=== PATIENT | female | born 1945 | race Caucasian/White ===

== ENCOUNTER → 2021-12-09 08:06 | Outpatient (CLI) | payer MEDICARE, SELFPAY ==
--- NOTE | 2021-12-09 | DI.MRI.S_ITS ---
PROCEDURE: MR LUMBAR SPINE WO CON INDICATIONS: SPINAL STENOSIS TECHNIQUE: Noncontrast sagittal T1 spin echo and T2 fast echo, sagittal STIR, and T2 fast spin echo through the lumbar spine. In cases with scoliosis, additional coronal T2 fast spin echo may be performed. COMPARISON: None. FINDINGS: Image quality: Excellent. Alignment and Curvature: There is normal bony alignment. Bone Marrow: Marrow is of normal overall signal. No acute vertebral body compression fractures. Spinal Cord: Conus medullaris terminates at the L1 level. Visualized cord demonstrates normal signal and size. Paraspinous Soft Tissues: No paravertebral masses. T12-L1: No significant disc bulge. The foramina and central canal are patent. L1-L2: No significant disc bulge. The foramina and central canal are patent. L2-L3: The disc is desiccated. No significant disc bulge. The foramina and central canal are patent. L3-L4: The disc is desiccated. No significant disc bulge. The foramina and central canal are patent. L4-L5: Diffuse disc bulge, facet hypertrophy and facet arthrosis with grade 1 anterolisthesis and ligamentum flavum hypertrophy cause severe right foraminal stenosis, moderate left foraminal stenosis, and severe central canal stenosis. L5-S1: Diffuse disc bulge, and facet hypertrophy cause moderate right and mild left foraminal stenosis. The central canal has mild stenosis. IMPRESSION: 1. Multilevel lumbar spondylosis, predominantly at L4-5 and L5-S1 with foraminal stenosis as detailed above causing severe central canal stenosis at L4-5. 2. No abnormal cord signal. 3. No acute traumatic abnormality. Dictated by: Rafa Snow M.D. on 12/09/2021 at 9:57 Approved by: Rafa Snow M.D. on 12/09/2021 at 10:03
== END ==
PROVIDERS: Family Provider Internal Medicine; PCP Internal Medicine; Referring Provider Orthopaedic Surgery Orthopaedic Surgery of the Spine; Visit Provider Orthopaedic Surgery Orthopaedic Surgery of the Spine
DX: M48.061 Spinal stenosis, lumbar region without neurogenic claudication (principal); M47.816 Spondylosis without myelopathy or radiculopathy, lumbar region; M47.817 Spondylosis without myelopathy or radiculopathy, lumbosacral region
CPT/HCPCS: 72148

== ENCOUNTER → 2022-01-18 09:13 | Outpatient (CLI) | payer MEDICARE, SELFPAY ==
--- NOTE | 2022-01-18 | DI.CT.S_ITS ---
PROCEDURE: CT LUMBAR SPINE WO CON INDICATIONS: SPINAL STENOSIS OF LUMBAR REGION TECHNIQUE: Noncontrast 3 mm thick sections acquired from the T12 level to the sacrum. Sagittal and coronal reformats were constructed. For radiation dose reduction, the following was used: automated exposure control. COMPARISON: MRI lumbar spine 12/09/2021 FINDINGS: Anterolisthesis measuring 5 millimeters is not significantly changed from 6 millimeters on the comparison MRI. Otherwise normal alignment. Vertebral body heights maintained. No suspicious lytic or blastic osseous lesion. No pars defect. Moderate to severe facet osteoarthropathy from L3-L4 through L5-S1 characterized by joint space narrowing, subchondral sclerosis, subchondral cystic change, and degenerative pneumoarthria along with marginal osteophytosis. The varying degrees of neural foraminal narrowing caused by the facet arthropathy in conjunction with disc protrusions is unchanged from the comparison MRI, again severe bilaterally at L4-L5. Spinal canal stenosis is also similar. Small calcified disc component is present within the right L5-S1 neural foramen (series 6, image 39). There is also focal punctate calcification of the annulus at the L2-L3 level on series 6, image 32 in the left subarticular zone. IMPRESSION: Multilevel multifactorial degenerative changes which are stable compared to 12/09/2021 exam. Small calcified annular disc components noted as detailed above. Dictated by: Amando Heller M.D. on 01/18/2022 at 16:41 Approved by: Amando Heller M.D. on 01/18/2022 at 16:45
== END ==
PROVIDERS: Family Provider Internal Medicine; PCP Internal Medicine; Referring Provider Orthopaedic Surgery Orthopaedic Surgery of the Spine; Visit Provider Orthopaedic Surgery Orthopaedic Surgery of the Spine
DX: M48.061 Spinal stenosis, lumbar region without neurogenic claudication (principal); M47.816 Spondylosis without myelopathy or radiculopathy, lumbar region; M47.817 Spondylosis without myelopathy or radiculopathy, lumbosacral region
CPT/HCPCS: 72131

== ENCOUNTER → 2022-01-25 11:06 | Outpatient (CLI) | payer MEDICARE, SELFPAY ==
[2022-01-25 11:28] LABS: Add Manual Diff / Slide Review NO; Basophils Absolute Auto 0 /uL (0-100); Basophils Percent Auto 0.7 % (0-2); Eosinophils Absolute Auto 700 /uL (0-450); Eosinophils Percent Auto 10.2 % (2-4); Lymphocytes Absolute Auto 1600 /uL (1100-4500); Lymphocytes Percent Auto 24.8 % (25-40); Mean Corpuscular HGB Conc 33.4 % (30-36); Mean Corpuscular Hemoglobin 31.4 PG (26-34); Mean Corpuscular Volume 93.8 fL (80-100); Monocytes Absolute Auto 300 /uL (0-900); Monocytes Percent Auto 4.6 % (3-14); Neutrophils Absolute Auto 3900 /uL (1500-7000); Neutrophils Percent Auto 59.7 % (50-75); Platelet Count 199 X10^3/uL (150-400); Red Blood Cell Count 3.52 X10^6/uL (4.0-5.2); Red Cell Distribution Width 13.8 % (11.6-14.8); White Blood Cell Count 6.6 X10^3/uL (4.5-11.0)
[2022-01-25 11:35] LABS: Hemoglobin A1C% w Est Avg Glu 5.8 % (4.0-6.0)
[2022-01-25 11:49] LABS: BUN Creatinine Ratio 20.3 (6-22); Blood Urea Nitrogen 31 mg/dL (7-17); Calcium 9.9 mg/dL (8.4-10.2); Carbon Dioxide 27 mmol/L (22-32); Chloride 106 mmol/L (98-107); Estimated Glomerular Filt Rate 35 mL/min (>60); Glucose 110 mg/dL (80-110); HEMOLYSIS < 15 (0-50); Potassium 3.8 mmol/L (3.4-5.1); Sodium 142 mmol/L (137-145)
== END ==
PROVIDERS: Family Provider Internal Medicine; PCP Internal Medicine; Referring Provider Orthopaedic Surgery Orthopaedic Surgery of the Spine; Visit Provider Orthopaedic Surgery Orthopaedic Surgery of the Spine
DX: Z01.818 Encounter for other preprocedural examination (principal); R73.9 Hyperglycemia, unspecified; Z01.812 Encounter for preprocedural laboratory examination
CPT/HCPCS: 36415; 80048; 83036; 85025; 93005

== ENCOUNTER → 2022-03-05 10:26 | Outpatient (CLI) | payer OTHER, SELFPAY ==
[2022-03-05 11:42] LABS: COVID19 -Nasal RAPID POSITIVE (Negative)
== END ==
PROVIDERS: Family Provider Internal Medicine; PCP Internal Medicine; Referring Provider Orthopaedic Surgery Orthopaedic Surgery of the Spine; Visit Provider Orthopaedic Surgery Orthopaedic Surgery of the Spine
DX: Z20.822 Contact with and (suspected) exposure to COVID-19 (principal)
CPT/HCPCS: 87635; C9803

== ENCOUNTER → 2022-04-13 08:49 | Outpatient (CLI) | payer OTHER, SELFPAY ==
[2022-04-13 10:08] LABS: Add Manual Diff / Slide Review NO; Basophils Absolute Auto 0 /uL (0-100); Basophils Percent Auto 0.6 % (0-2); Eosinophils Absolute Auto 800 /uL (0-450); Eosinophils Percent Auto 13.3 % (2-4); Hematocrit 34.6 % (36-46); Hemoglobin 11.4 g/dL (12.0-16.0); Lymphocytes Absolute Auto 1600 /uL (1100-4500); Mean Corpuscular Hemoglobin 31.1 PG (26-34); Mean Corpuscular Volume 94.3 fL (80-100); Monocytes Absolute Auto 300 /uL (0-900); Monocytes Percent Auto 4.9 % (3-14); Neutrophils Absolute Auto 3300 /uL (1500-7000); Neutrophils Percent Auto 54.2 % (50-75); Platelet Count 196 X10^3/uL (150-400); Red Blood Cell Count 3.67 X10^6/uL (4.0-5.2); Red Cell Distribution Width 14.2 % (11.6-14.8)
[2022-04-13 10:39] LABS: Blood Urea Nitrogen 46 mg/dL (7-17); Calcium 9.4 mg/dL (8.4-10.2); Carbon Dioxide 26 mmol/L (22-32); Chloride 106 mmol/L (98-107); Estimated Glomerular Filt Rate 27 mL/min (>60); Glucose 101 mg/dL (80-110); HEMOLYSIS < 15 (0-50); Potassium 4.3 mmol/L (3.4-5.1); Sodium 141 mmol/L (137-145)
== END ==
PROVIDERS: Family Provider Internal Medicine; PCP Internal Medicine; Referring Provider Orthopaedic Surgery Orthopaedic Surgery of the Spine; Visit Provider Orthopaedic Surgery Orthopaedic Surgery of the Spine
DX: Z01.812 Encounter for preprocedural laboratory examination (principal)
CPT/HCPCS: 36415; 80048; 85025

== ENCOUNTER → 2022-04-19 11:29 | Outpatient (CLI) | payer OTHER, SELFPAY ==
[2022-04-19 13:05] LABS: COVID19 -Nasal RAPID Negative (Negative)
== END ==
PROVIDERS: Family Provider Internal Medicine; PCP Internal Medicine; Referring Provider Orthopaedic Surgery Orthopaedic Surgery of the Spine; Visit Provider Orthopaedic Surgery Orthopaedic Surgery of the Spine
DX: Z20.822 Contact with and (suspected) exposure to COVID-19 (principal)
CPT/HCPCS: 87635; C9803

== ENCOUNTER 2022-07-12 11:14 | Inpatient (IN) | payer OTHER, SELFPAY ==
[2022-07-01 12:45] VITALS: BMI 31.2
[2022-07-12] VITALS (27 sets, daily range): BP systolic 94–156; BP diastolic 53–89; PULSE 68–96; RESP 12–22; TEMP 36.1–36.6; O2SAT 90–100; BMI 31.2
[2022-07-12 12:12] LABS: COVID19 -Nasal RAPID Negative (Negative)
[2022-07-12] MEDS: LACTATED RINGERS 1,000 ML 42 ML IV ×2 (12:13→15:46)
--- NOTE | 2022-07-12 13:29 | PM.PREOP ---
Pre-operative Note COVID-19 COVID-19 status: Negative Result date/Date tested (Pos, Neg/Pending): 07/11/22 Criteria for continued procedure: Expected advancement of disease process, Possibility delay results in more complex future surgery or treatment, Increased loss of function, Continuing or worsening of significant or severe pain, Deterioration of the patient's condition or overall health and Delay expected to result in less-positive ultimate med/surg outcome Interval Note History & Physical reviewed/Exam performed by Physician: Yes Changes to H&P: No
[2022-07-12] MEDS: CLINDAMYCIN 900 MG/50 ML PIGGYBACK 50 MG IV ×2 (14:05→20:23)
--- NOTE | 2022-07-12 14:34 | SUR.OPER ---
Prone on spine table, head in foam head support, padded chest and pelvic supports, gel pad at knees, lower legs supported by pillows; nipples, genitalia and toes free of pressure, arms secured on foam padded arm boards at <90 degrees abduction. Tape over blanket at thigh secured to table.
[2022-07-12] MEDS: BUPIVACAINE LIPOSOME 266 MG/20 ML VIAL INJ (15:27)
[2022-07-12] MEDS: BUPIVACAINE 0.25% (PF) 30 ML, EPINEPHrine 0.3 MG INJ (15:27)
--- NOTE | 2022-07-12 17:01 | P.OP_ITS ---
Operative Date/Time/Diagnoses Date of procedure: 07/12/22 Time of procedure: 13:00 Pre-op diagnosis: 1. L4-5, L5-S1 spinal stenosis with neurogenic claudication 2. L4-5, L5-S1 spondylolisthesis Post-op diagnosis: same Procedure & Clinicians Procedure: 1. L4-5, L5-S1 Postero-lateral and posterior interbody fusion 2. L4-5, L5-S1 interbody cage placement. 3. L4-5, L5-S1 decompressive laminectomy with bilateral facetecomies 4. L4-5, L5-S1 Posterior segmental instrumentation 5. [place] of bone marrow from iliac crest 6. Utilization of microsurgical technique and operating microscope 7. Utilization of robotic assisted navigation Same procedure as scheduled: Yes Indications: Patient has been having chronic back pain and worsening lumbar radiculopathy and symptoms of neurogenic claudication. Patient failed multiple conservative management with worsening pain weakness and numbness in her lower extremity. Patient has been having difficulty performing activity of daily living. After discussing risks benefits of treatment options, patient elected proceed with surgery. Surgeon: Monica Roberts Vamp Seamer: Sanjiv Currie Click Yes if Unassisted: No Anesthesia Type: General Operative Notes Closure Type: primary Specimen(s): none sent Prosthetic devices, grafts, tissues, transplants, or devices: GLbus CREO MIS screws, Rise cages Applied: catheter Estimated Blood Loss (mL): 100 Procedure in detail: Patient was seen in the preoperative area. Risks and benefits of the surgery was discussed with the patient. Informed consent was obtained from the patient and placed in the chart. Surgical site was marked. Patient was taken to the operative room. General anesthesia was administered. Prophylactic antibiotic was given to the patient less than 30 min before the incision was made. Patient was placed into a prone position on the Humberto table. Patient's back was then prepped and draped in the sterile fashion. Time-out was performed at this time. After patient was prepped and draped, patient's PSIS was palpated and marked b ilaterally. Small 1 cm incision was made over the PSIS for placement of the reference probes. Two trocar was placed into the PSIS 1 on each side. The reference probe was attached to the trocar of the reference apparatus. At this time the C-arm imaging was used to confirm AP and lateral of L4-L5, L5- S1 vertebrae and merged the C-arm imaging using the [employer] robotic navigation system with the CT of the lumbar spine. After successful merging was completed and confirmed, skin marker was used to saniya out the skin incision using the [employer] robotic arm. Bilateral incision was made at this time. Pre templated trajectory was used and guided using the [employer] robotic navigation system for bilateral L4, L5, S1 pedicle screw placement. This was done by using the robotic arm to guide the high-speed bur to make a cortical entry point. Next a drill was placed also using the robotic arm and guided using the navigation system drilling partially through bilateral L4, L5 and S1 pedicles. Next L4, L5, S1 pedicle screws it was pre templated and measured was placed onto the power industrial tractor driver and inserted into the pedicles bilaterally. After all 6 screws were placed C-arm imaging was taken of both AP and lateral to confirm the placement. Excellent placement of the screws were confirmed and a matched precisely with the pre planned screw placement using the navigation system. MARs retractor was inserted using [employer] guidence. Globus MARS retractors was placed inside the incision and docked onto the L4 and L5 lamina. Using microsurgical technique and operating microscope, a L4, L5 laminectomy and L4-5, L5-S1 facetectomy was performed using a Kerrison rongeur. Patient was found have severe lateral recess and neural foramen stenosis which was fully decompressed after the laminectomy facetectomy. More than 75% of the facets were removed during the process of decompression rendering L4-5, L5-S1 level grossly unstable and required a fusion procedure at the same time. The disc space at L4-5, L5-S1 was identified, and a total diskectomy was performed at L4- 5, L5-S1 level. The endplates were decorticated using a rasp and shaver. The total diskectomy and decortication was performed at L4-5, L5-S1 level in order to to accomplish a L4-5, L5-S1 fusion. The local bone from the laminectomy and facetectomy was saved for local bone grafting. After the total diskectomy and decortication was completed, Trifecta bone graft material was combined with local bone that was harvested earlier. At this time, a separate skin is incision was made over the iliac crest. A Jamshidi needle was inserted into the iliac crest through a separate skin incision. 5 cc of bone marrow aspiration was obtained through the separate skin incision using a Jamshidi needle from the iliac crest. The bone marrow aspiration was combined with local bone and the Trifecta bone grafting material. The bone grafting material was placed into the L4-5, L5-S1 interbody space along with a expandable cage. The cage was expanded to its maximum height using the torque limiting screwdriver. The disc preparation as well as the cage insertion were also performed under navigation guidance. After the cage was placed, AP and lateral C-arm imaging was taken to confirm placement of the cage and excellent position was confirmed. Globus MARS retractor was inserted and docked onto the L4-5, L5-S1 posterolateral gutter on the right side. Using the power drill, posterior- lateral decortication was performed at L4-5, L5-S1 level until bleeding cortical bone was identified. The remaining bone grafting material was placed into the L4-5, L5-S1 posterior lateral gutter he order to accomplish posterolateral fusion at the L4-5, L5-S1 level. At this time the tulips were attached to the L4, L5, S1 pedicle screw shanks. After measuring the length of the rods, they were inserted into the tulips of the pedicle screws and locked in place using locking caps and torque limiting screwdriver bilaterally. Total 6 caps and 2 titanium rods was used in order to complete the posterior instrumentation construct. After all the hardware was placed, and confirmed with AP and lateral C-arm imaging, the wound was then irrigated with sterile normal saline and packed with [employer] gauze for 3 min to accomplish hemostasis. After the gauze was removed the deep fascia was closed with #1 Vicryl suture. The subcutaneous layer was closed with 2-0 Vicryl. The skin was closed with skin katie. Patient tolerated the procedure well. There were no complications. Neuro monitoring system was used to monitor patient's neurologic status throughout entire procedure. There was no disturbance of the neural monitoring signals throughout the case. Complications: none Post-operative Condition: stable Disposition: PACU Plan for aftercare: Admit to inpatient hospital
--- NOTE | 2022-07-12 17:05 | DI.RAD.S_ITS ---
PROCEDURE: XR LUMBAR SPINE 2-3V INDICATIONS: L4-5, L5-S1 TLIF(ROBOT) TECHNIQUE: Intraoperative fluoroscopic images were obtained COMPARISON: None. FINDINGS: Two intraoperative fluoroscopic images of the lower lumbar spine. IMPRESSION: Intraprocedural fluoroscopy was provided for guidance and anatomical localization. Please see the procedure report for further details. Dictated by: Aaron Mccarty M.D. on 07/12/2022 at 17:30 Approved by: Aaron Mccarty M.D. on 07/12/2022 at 17:31
[2022-07-12] MEDS: ALBUTEROL 2.5 MG/3 ML NEB (ADULT) INH (17:17)
[2022-07-12] MEDS: LACTATED RINGERS 1,000 ML 125 ML IV (19:14)
[2022-07-12] MEDS: DOCUSATE 100 MG CAPSULE PO (20:33)
[2022-07-12] MEDS: SENNOSIDES 8.6 MG TABLET 17.2 MG PO (20:33)
[2022-07-13] VITALS (9 sets, daily range): BP systolic 96–125; BP diastolic 48–64; PULSE 65–85; RESP 16–18; TEMP 36.1–36.9; O2SAT 90–99
[2022-07-13] MEDS: CLINDAMYCIN 900 MG/50 ML PIGGYBACK 50 MG IV (02:48)
[2022-07-13] MEDS: OXYCODONE IR 10 MG TABLET PO ×3 (02:48→20:25)
[2022-07-13 05:16] LABS: Hematocrit 30.4 % (36-46); Hemoglobin 10.2 g/dL (12.0-16.0)
[2022-07-13] MEDS: LACTATED RINGERS 1,000 ML 125 ML IV (06:35)
--- NOTE | 2022-07-13 07:41 | PM.PNPO.1 ---
Subjective Subjective Date Patient Seen: 07/13/22 Time Patient Seen: 07:41 Interval history: Pain controlled. Denies fever chills. No nausea vomiting. Exam Vital Signs (past 8 hours): - 07/13/22 00:30 07/13/22 05:05 Temperature 97.3 F L 97.0 F L Pulse Rate 67 65 Respiratory Rate 18 18 Blood Pressure 106/54 L 103/48 L Pulse Oximetry 98 97 Oxygen Flow Rate 4 4 Fraction of Inspired Oxygen 36 SaO2/FiO2 Ratio 277 Oxygen Delivery Method Nasal Cannula Oxygen Flow Rate 4 Narrative Exam Narrative: 76-year-old female resting comfortably in bed no apparent distress. Neurovascular status is intact bilateral lower extremities. Const General: cooperative and comfortable Nutritional Appearance: average body habitus Orientation: alert Resp Effort & Inspection: normal respiratory effort and able to speak in complete sentences Objective Labs 07/13/22 04:31 Labs: Laboratory Results - last 24 hr 07/12/22 07/13/22 11:33 04:31 Hgb 10.2 L Hct 30.4 L SARS-CoV-2 (PCR) Negative [facility] Medical History Arthritis Asthma CKD (chronic kidney disease), stage III COVID-19 virus infection (03/05/22) GERD (gastroesophageal reflux disease) HLD (hyperlipidemia) HTN (hypertension) Spinal stenosis Surgical History History of ankle surgery History of bilateral tubal ligation History of bunionectomy of left great toe Hx of bilateral cataract extraction Hx of bladder repair surgery Hx of cholecystectomy Hx of fusion of cervical spine (2013) Hx of sinus surgery Hx of tonsillectomy Social History household members: spouse Smoking Status: Former smoker alcohol intake: current Assessment & Plan Post-op Postoperative Procedures: Procedures Operation Date: 07/12/22 13:00 Actual Procedure Side Surgeon p L4-5, L5-S1 TLIF w. posterior instrumentation -Robot Monica Roberts MD Postoperative day: 1 Postoperative status: doing well Postoperative plan: routine post-op care and ambulate Postoperative plan narrative: Mobilize with physical therapy, limit bending, twisting, lifting Multimodal pain management Discharge Jara catheter this morning Disposition home today or tomorrow Quality VTE Deep Vein Thrombosis/Pulmonary Embolism Present on Admission: No
[2022-07-13] MEDS: ATORVASTATIN 20 MG TABLET 40 MG PO (09:13)
[2022-07-13] MEDS: DOCUSATE 100 MG CAPSULE PO ×2 (09:13→20:25)
[2022-07-13] MEDS: AMLODIPINE 5 MG TABLET PO (09:13)
[2022-07-13] MEDS: LORATADINE 10 MG TABLET PO (09:13)
--- NOTE | 2022-07-13 11:04 | PC.NURSE ---
Addendum entered by Yohannes Alvarez R.N. 07/13/22 17:03: Pt tolerating Oxycodone without rash or issue after two doses. will continue to monitor. Addendum entered by Yohannes Alvarez R.N. 07/13/22 15:35: Pt alert and oriented, progressing though not feeling ready for discharge, spoke with PT and with Dr. Roberts and it was felt given Pt getting out late from surgery yesterday, she could use one more night. D/C canceled for today. PT to see in the morning. Original Note: Pt A&O, offers no overt c/o, Pt conversant, follows commands, asking appropriate questions. Jara discontinued without difficulty per orders. Pt working with PT presently.
--- NOTE | 2022-07-13 11:30 | PT.IIE ---
Current Diagnoses Spondylolisthesis, lumbar region (07/12/22) Spinal stenosis, lumbar region with neurogenic claudication (07/12/22) Surgery Performed Operation Date: 07/12/22 13:00 Actual Procedures p L4-5, L5-S1 TLIF w. posterior instrumentation -Robot - Monica Roberts MD Surgical History (Last Reviewed 07/13/22 @ 07:41 by Sanjiv Currie PA-C) History of ankle surgery History of bilateral tubal ligation History of bunionectomy of left great toe Hx of bilateral cataract extraction Hx of bladder repair surgery Hx of cholecystectomy Hx of fusion of cervical spine (2013) Hx of sinus surgery Hx of tonsillectomy Medical History (Last Reviewed 07/13/22 @ 07:41 by Sanjiv Currie PA-C) Arthritis Asthma CKD (chronic kidney disease), stage III COVID-19 virus infection (03/05/22) GERD (gastroesophageal reflux disease) HLD (hyperlipidemia) HTN (hypertension) Spinal stenosis Physical Therapy Inpatient Evaluation/Re-Eval M1 PT/OT-IP Prior Functional Status Start: 07/13/22 10:39 Freq: NEEDED Status: Active Protocol: Document 07/13/22 11:19 [facility] (Rec: 07/13/22 11:30 [facility] [id number]) Medical Review Prior Functional Status Medical History Reviewed Yes Diet/Fluid Consistency Regular Communication A & O x 4 Mobility and Gait independent Activities of Daily Living and IADL's modified ndep Social History Household Members spouse Living Arrangements Apartment/Condo Number of Floors (Floors) One Floor Number of Stairs To Enter/Railing? 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 Retired M2 PT-IP Current Condition Start: 07/13/22 10:39 Freq: NEEDED Status: Active Protocol: Document 07/13/22 11:19 [facility] (Rec: 07/13/22 11:30 [facility] [id number]) Physical Therapy Current Condition Current Condition Evaluation Date 07/13/22 Treatment Diagnosis s/p lumbar surgery with fusion Onset Date 07/12/22 M3 PT-IP Subjective Start: 07/13/22 10:39 Freq: NEEDED Status: Active Protocol: Document 07/13/22 11:19 [facility] (Rec: 07/13/22 11:30 [facility] [id number]) Subjective Physical Therapy Visit Type Type Initial Evaluation Visit Start Time 10:50 Visit Stop Time 11:20 Total Visit Minutes 30 Physical Therapy Visit Comments Patient Comments Patient willing to do PT, had pain medication 1 1/2 hr ago. Nrsg to remove catheter so may want to walk to bathroom Therapy Pain Assessment Pain When Pain Assessed At Rest Pain Present Pain Present Pain Reported Location back Intensity 6 Scale Used Numeric (0 - 10) Description Aching,Pinching,Tightness Pain Management Techniques Apply Cold,Distraction,Re- positioning,Timing of Activity with Medications M4 PT-IP Mobility and Gait Start: 07/13/22 10:39 Freq: NEEDED Status: Active Protocol: Document 07/13/22 11:19 [facility] (Rec: 07/13/22 11:30 [facility] [id number]) PT-Bed Mobility Assessment Rolling Type of Rolling Log Rolling,Roll to Left Level of Assist Minimal Assistance Supine to Sit Supine to Sit Minimal Assistance Sit to Supine Sit to Supine Minimal Assistance PT-Transfer Assessment Sit to and From Stand Sit to and from Stand Contact Guard Assistance Equipment Transfer Assistive Device Front Wheeled Walker Orthotic/Prosthetic Devices or Brace: No Transfers Transfer Technique walker for gait Transfer Ability Level of Assist Contact Guard Assistance,Use of Upper Extremities Comments Mobility Comments cues for safety Gait Assessment Gait Gait Assistance Required: Contact Guard Assist Distance (Feet) 20 Able to Maintain Weight Bearing Status Yes During Gait Assistive Devices Assistive Device Front Wheeled Walker Orthotic/Prosthetic Devices or Brace: No Gait Deviations General Gait Pattern Decreased Stride Length, Decreased Feet Clearance Factors Limiting Gait Function Factors Limiting Gait Function Pain Stair Climbing Assessment Comments Stair Climbing Comments not done in am PT-Balance Assessment Sitting Balance and Reactions Static Sitting Balance Ability Good Dynamic Sitting Balance Ability Good Standing Balance and Reactions Static Standing Balance Ability Good Dynamic Standing Balance Ability Good Device Used FWW M5 PT-IP Objective Assessments Start: 07/13/22 10:39 Freq: NEEDED Status: Active Protocol: Document 07/13/22 11:19 [facility] (Rec: 07/13/22 11:30 [facility] [id number]) Orientation Orientation/Cognition Level of Alertness Alert Orientation Name,Place,Situation Language Function Ability No Deficits Noted Safety Awareness Decreased Safety Awareness Memory Description No Deficits Noted Comments Patient instructed in post-op precautions and functional adherence reviewed several times Gross Range of Motion Upper Extremity ROM Assessment Within Functional Limits Lower Extremity ROM Assessment Within Functional Limits Strength Lower Extremity Strength Assessment Within Functional Limits Sensation Assessment Sensation Gross Sensation WNL Muscle Tone Muscle Tone WNL Yes M6 PT-IP Treatment Start: 07/13/22 10:39 Freq: NEEDED Status: Active Protocol: Document 07/13/22 11:19 [facility] (Rec: 07/13/22 11:30 [facility] [id number]) Physical Therapy Treatment Exercises Exercises Ankle Pumps,Gluteal Sets,Quad Sets Education Education Provided Precautions Other Treatments Other Treatment Performed core harika all submax M7 PT-IP Assessment and Plan Start: 07/13/22 10:39 Freq: NEEDED Status: Active Protocol: Document 07/13/22 11:19 [facility] (Rec: 07/13/22 11:30 [facility] [id number]) PT Summary Assessment and Plan Potential Rehabilitation Potential Good Status of Condition at Evaluation Evolving Summary Impairments Pain,Bed Mobility,Transfers, Gait,Activity Tolerance Assessment Summary Patient seen for PT evaluation post-op day 1 lumbar surgery with fusion. Instructed in post-op precautions, and reviewed throughout session with function. Instructed in log roll for exiting and entering bed, and instructed in safe use of walker with transfers and gait. Able to ambulate to the bathroom to void and back to bed. Mild inc pain with mobility and with submax isometric ex. Feel it will be difficult for patient to go directly home to her condo due to having 16 stairs to enter. Patient reports she is considering rehab vs staying in a hotel due to it having an elevator due to concerns over stairs. Goals Bed Mobility Goal Standby Assistance Transfer Goal Standby Assistance Gait Goal Standby Assistance Gait Distance 200 Other Goals able to verbalize precautions and demonstrate good ability to functionally adhere to precautions Days to Meet Goals 4 Frequency of Treatment Frequency Of Treatment Twice a Day Treatment Plan Physical Therapy Treatment Plan Bed Mobility Training,Transfer Training,Gait Training, Therapeutic Exercise,Discharge Planning,Hot or Cold Pack Precautions Lumbar Precautions Log Roll,No Twisting,Limit Bending,Lifting Restriction of 10 lbs,Gait Belt above Incisional Area Recommendations To Nursing Amount of Assist Needed 1 Person Assist Discharge Recommendations PT Discharge Recommendations Home with 25/10 Assist Available,Acute Rehab, Outpatient PT Transportation Needs at Discharge Private Vehicle
--- NOTE | 2022-07-13 12:06 | OT.IP.EVAL ---
Current Diagnoses Spondylolisthesis, lumbar region (07/12/22) Spinal stenosis, lumbar region with neurogenic claudication (07/12/22) Surgery Performed Operation Date: 07/12/22 13:00 Actual Procedures p L4-5, L5-S1 TLIF w. posterior instrumentation -Robot - Monica Roberts MD Past Medical History (Last Reviewed 07/13/22 @ 13:51 by Sanjiv Currie PA-C) Arthritis Asthma CKD (chronic kidney disease), stage III COVID-19 virus infection (03/05/22) GERD (gastroesophageal reflux disease) HLD (hyperlipidemia) HTN (hypertension) Spinal stenosis Surgical History (Last Reviewed 07/13/22 @ 13:51 by Sanjiv Currie PA-C) History of ankle surgery History of bilateral tubal ligation History of bunionectomy of left great toe Hx of bilateral cataract extraction Hx of bladder repair surgery Hx of cholecystectomy Hx of fusion of cervical spine (2013) Hx of sinus surgery Hx of tonsillectomy Occupational Therapy Inpatient Evaluation/Re-Eval M1 PT/OT-IP Prior Functional Status Start: 07/13/22 10:39 Freq: NEEDED Status: Active Protocol: Document 07/13/22 13:49 CGR (Rec: 07/13/22 14:10 CGR [id number]) Medical Review Prior Functional Status Medical History Reviewed Yes Diet/Fluid Consistency Regular Communication A & O x 4 Mobility and Gait independent Activities of Daily Living and IADL's Ind in all ADLs. Pt states that her and her share tasks. Social History Household Members spouse Living Arrangements Apartment/Condo Number of Floors (Floors) One Floor Number of Stairs To Enter/Railing? 16 stairs, 1 railing Home Environment Standard Height Toilet,Walk in Shower,Built-In Shower Seat Home Equipment Front Wheel Walker,Grab Bars Near Toilet,Grab Bars In Shower Employment Status Retired Additional Social History Comment Pt has an adjustable bed. M2 OT-IP Current Condition Start: 07/13/22 13:48 Freq: Status: Active Protocol: Document 07/13/22 13:49 CGR (Rec: 07/13/22 14:10 CGR [id number]) Occupational Therapy Current Condition Current Condition Evaluation Date 07/13/22 Treatment Diagnosis L4-S1 TLIF Diagnosis Onset Date 07/12/22 Post Operative Precautions Lumbar Precautions Log Roll,No Twisting,Limit Bending,Lifting Restriction of 10 lbs,Gait Belt above Incisional Area M3 OT- IP Subjective and Pain Start: 07/13/22 13:48 Freq: Status: Active Protocol: Document 07/13/22 13:49 CGR (Rec: 07/13/22 14:10 CGR [id number]) OT- Subjective Occupational Therapy Visit Type Type Initial Evaluation Visit Start Time 11:15 Visit Stop Time 12:06 Total Visit Minutes 51 Notes Pt finishing when pt when OT entered. OT Pain Assessment Pain When Pain Assessed At Rest Pain Present Pain Present Pain Reported Location back Intensity 6 Scale Used Numeric (0 - 10) Management Techniques Distraction,Modification of Treatment,Re-positioning, Timing of Activity with Medications M4 OT- IP ADL's Start: 07/13/22 13:48 Freq: Status: Active Protocol: Document 07/13/22 13:49 CGR (Rec: 07/13/22 14:10 CGR [id number]) OT [id number] Comments OT Self-Feeding Comments not meal time OT ADL-Grooming General Evaluation Grooming Ability Standby Assistance Areas Needing Assistance Face Washing Comments OT Grooming Comments standing at sink OT ADL-Oral Care Comments Oral Care Comments not performed, pt states just did prior to OT entering. OT ADL-Dressing General Eval Lower Body Dressing Ability Standby Assistance Areas Needing Assistance Socks Assistive Devices Dressing Assistive Devices Burr Mill Operator,Sock Aid Comments OT Dressing Comments Pt educated on LB dressing with use of sock aid and scrubbing machine operator. Pt demonstrated doffing an donning one sock on her L foot. OT ADL-Toileting General Evaluation Toileting Ability Standby Assistance Comments OT Toileting Comments simulated seated on toielt OT ADL-Bathing Comments OT Bathing Comments not performed M5 OT- IP IADL's Start: 07/13/22 13:48 Freq: Status: Active Protocol: Document 07/13/22 13:49 CGR (Rec: 07/13/22 14:10 CGR [id number]) OT-Instrumental Activities of Daily Living Deficits IADL Deficits Identified No Deficits Home Safety Awareness Awareness of Need for Assistance at Home Good Awareness Ability to Problem Solve Emergency Able to Problem Solve Situations Medication Management Medication Management No Deficits Identified Money Management Money Management No Deficits Identified Meal Preparation Meal Preparation No Deficits Identified Java Security Architect Java Security Architect No Deficits Identified Driving Driving Comments 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 M6 OT- IP Functional Cognition Start: 07/13/22 13:48 Freq: Status: Active Protocol: Document 07/13/22 13:49 CGR (Rec: 07/13/22 14:10 CGR [id number]) Cognitive Factors Limiting Selfcare Function Cognitive Ability Level of Alertness Alert Patient Orientation Name,Age,Birthday,Month,Date, Year,Day of Week,Place, Situation Attention Span Ability Capable of Focused Attention, Capable of Sustained Attention Ability to Follow Commands Able to Follow Multi-Step Commands OT- Vision and Hearing OT- Hearing Assessment OT- Hearing Assessment WFL OT- Vision Assessment Visual Acuity Glasses For Reading Visual Attentiveness WFL Occular Pursuits WFL Visual Convergence WFL Vision Assessment Comments Pt states she has a blurry R eye that started about 2 days prior to sx. Noted that it was bothering her at [facility]. M7 OT- IP Mobility and Balance Start: 07/13/22 13:48 Freq: Status: Active Protocol: Document 07/13/22 13:49 CGR (Rec: 07/13/22 14:10 CGR [id number]) OT- Bed Mobility Assessment Rolling Type of Rolling Log Rolling Level of Assistance Independent Supine to Sit Supine to Sit Assist Independent Sit to Supine Sit to Supine Assist Independent Scooting Scooting to Edge of Bed Independent OT-Transfer Assessment Sit to and From Stand Sit to and from Stand Standby Assistance Transfers Transfer Ability Standby Assistance Technique Transfer Destination Bed,Chair,Toilet Transfer Technique Stand Step Pivot Devices Transfer Assistive Devices Gait Belt,Front Wheeled Walker Comments Mobility Comments mobility around the room OT- Balance Assessment Sitting Balance and Reactions Static Sitting Balance Ability Good Dynamic Sitting Balance Ability Good M8 OT- IP Objective Assessments Start: 07/13/22 13:48 Freq: Status: Active Protocol: Document 07/13/22 13:49 CGR (Rec: 07/13/22 14:10 CGR [id number]) OT Gross Range of Motion Upper Extremity Range of Motion Assessment Within Functional Limits OT Strength Upper Extremity Strength Assessment Within Functional Limits Comments Strength Comments 4+ to 5/5 OT- Coordination Assessment Upper Extremity Finger to Nose Test Within Functional Limits Finger Tapping Test Within Functional Limits OT-Muscle Tone Assessment Muscle Tone WNL Yes OT Sensation Assessment Edema Edema Absent M9 OT- IP Assessment and Plan Start: 07/13/22 13:48 Freq: Status: Active Protocol: Document 07/13/22 13:49 CGR (Rec: 07/13/22 14:10 CGR [id number]) OT Summary Assessment and Plan Potential Rehabilitation Potential Excellent Analytic Complexity at Evaluation Low Summary OT Impairments Pain,Balance,Functional Mobility,Dressing,Toileting, Bathing,Toilet Transfers, Shower Transfers,Activity Tolerance Progress Towards Goals Slow Progress due to Pain Assessment Summary Pt presents as a low complexity evaluation s/p admit for L4-S1 TLIF. Pt is progressing well with therapy and is ready for discharge, however, pt has 16 stairs to get into her condo. Pt states she is willing to get a hotel without stairs for a few days if necessary. Pt is planning to do stairs with P.T. this PM . Pt will benefit from continued OT services for 1-2 more treatments if still in the hospital for review of LB dressing and showers. Goals Dressing Goal Independent,Burr Mill Operator,Sock Aid Toileting Goal Independent Bathing Goal Independent Toilet Transfer Goal Independent Shower Transfer Goal Independent Days to Meet Goals 2 Frequency of Treatment Frequency Of Treatment Once a Day Treatment Plan OT Treatment Plan ADL Training,Functional Mobility,Patient/Family Education,Discharge Planning Other Treatment Recommendations and Next shower, review LB dressing. Treatment Focus Discharge Recommendations OT Discharge Recommendations Home with Assistance Transportation Needs at Discharge Private Vehicle
--- NOTE | 2022-07-13 13:48 | PM.DS.1 ---
History of Present Illness History of Present Illness Date Patient Seen: 07/13/22 Time Patient Seen: 07:41 Chief complaint: Back pain Narrative: See progress note Discharge Providers Provider Date of admission: 07/12/22 11:14 Discharge Date: 07/13/22 Primary care physician: Jonathan Madrigal MD Consults: 07/12/22 19:03 Consult to Occupational Therapy Evaluate & Treat Comment: Physician Instructions: Evaluate and treat Consult to Physical Therapy Evaluate & Treat Comment: Physician Instructions: Evaluate and Treat Discharge provider: Sanjiv Currie PA-C Summary Hospital Course Discharge Diagnosis: 1. L4-5, L5-S1 spinal stenosis with neurogenic claudication 2. L4-5, L5-S1 spondylolisthesis Hospital Course: 1. L4-5, L5-S1 Postero-lateral and posterior interbody fusion 2. L4-5, L5-S1 interbody cage placement. 3. L4-5, L5-S1 decompressive laminectomy with bilateral facetecomies 4. L4-5, L5-S1 Posterior segmental instrumentation 5. Edgar of bone marrow from iliac crest 6. Utilization of microsurgical technique and operating microscope 7. Utilization of robotic assisted navigation Same procedure as scheduled: Yes Indications: Patient has been having chronic back pain and worsening lumbar radiculopathy and symptoms of neurogenic claudication. Patient failed multiple conservative management with worsening pain weakness and numbness in her lower extremity.? Patient has been having difficulty performing activity of daily living.? After discussing risks benefits of treatment options, patient elected proceed with surgery. Surgeon: Monica Roberts Systems Design Engineer: Sanjiv Currie Click Yes if Unassisted: No Anesthesia Type: General Operative Notes Closure Type: primary Specimen(s): none sent Prosthetic devices, grafts, tissues, transplants, or devices: GLbus CREO MIS screws, Rise cages Applied: catheter Estimated Blood Loss (mL): 100 Patient admitted to the hospital for the above-mentioned procedure. Patient consented to the same. Patient taken operating room on July 12, 2022 underwent lumbar fusion. Patient back in her room recovering well as in stable condition. Patient did well with physical therapy. She will continue multimodal pain management. Limit bending, twisting, lifting. Discharge home today in stable condition. Status at Discharge Cognitive/behavioral status at discharge: at baseline, oriented Functional status at discharge: uses cane/walker Overall status at discharge: patient is progressing back to baseline Exam Vital Signs (past 8 hours): - 07/13/22 09:30 07/13/22 07:00 07/13/22 13:20 Temperature 97.1 F L 97.6 F Pulse Rate 65 74 Respiratory Rate 16 16 Blood Pressure 113/51 L 125/61 Pulse Oximetry 98 98 96 Oxygen Delivery Method Nasal Cannula Oxygen Flow Rate 0 5 0 Fraction of Inspired Oxygen 36 SaO2/FiO2 Ratio 277 Oxygen Delivery Method Nasal Cannula Oxygen Flow Rate 0 Narrative Exam Narrative: See progress note Const General: cooperative and comfortable Objective Labs 07/13/22 04:31 Labs: Laboratory Results - last 24 hr 07/13/22 04:31 Hgb 10.2 L Hct 30.4 L PFSH Medical History Arthritis Asthma CKD (chronic kidney disease), stage III COVID-19 virus infection (03/05/22) GERD (gastroesophageal reflux disease) HLD (hyperlipidemia) HTN (hypertension) Spinal stenosis Surgical History History of ankle surgery History of bilateral tubal ligation History of bunionectomy of left great toe Hx of bilateral cataract extraction Hx of bladder repair surgery Hx of cholecystectomy Hx of fusion of cervical spine (2013) Hx of sinus surgery Hx of tonsillectomy Social History household members: spouse Smoking Status: Former smoker alcohol intake: current Discharge Assessment & Plan Assessment and Plan Assessment: Patient progressing as expected Plan of Treatment: Discharge home today in stable condition Discharge Plan Discharge Plan Patient Disposition: Home Discharge orders & Medications Prescriptions: New acetaminophen 325 mg Tablet 650 mg PO Q6H PRN (Reason: Fever/Mild Pain (1-3)) Qty: 60 0RF docusate sodium 100 mg Capsule 100 mg PO BID Qty: 20 0RF oxycodone 10 mg Tablet 5 mg PO Q3H PRN (Reason: Pain, Severe (7-10)) Qty: 60 0RF Continued atorvastatin 40 mg Tablet 40 mg PO DAILY cetirizine 10 mg Tablet 10 mg PO DAILY albuterol sulfate 2.5 mg /3 mL (0.083 %) Solution For Nebulization 2.5 mg INHALATION Q4-6H PRN (Reason: Asthma) amlodipine 5 mg Tablet 5 mg PO DAILY Discontinued naproxen sodium [Aleve] 220 mg Capsule 220 - 660 mg PO BEDTIME PRN (Reason: Pain) Follow up/Referrals: Jonathan Madrigal MD [Primary Care Provider] - Monica Roberts MD [Physician] - As previously scheduled (Two weeks as scheduled) Diet/Activity/Treatments Diet: Diet as Tolerated Activity: Limit bending, twisting, lifting Skin/Wound/Dressing Care Report to your healthcare provider any signs of infection, such as:: chills, fever, increased pain, unusual drainage and unusual redness Dressing: Keep dressing clean and dry Visit Report/Discharge Packet Instructions: DI for Prescription Opioid Use, DI for Transforaminal Lumbar Interbody Fusion Stand Alone Forms: Patient Portal/API, Stroke Signs & Symptoms, Surgery Discharge Discharge Data Primary Care Provider: Jonathan Madrigal Quality VTE Deep Vein Thrombosis/Pulmonary Embolism Present on Admission: No
--- NOTE | 2022-07-13 13:53 | CM.DANOTE ---
Initial DCP Assessment Note Pt is a 76 yo female, resident of [place], now POD#[address] Roberts PCP: Jonathan Madrigal Payer: [facility] Therapy has cleared pt for return home w/family to assist and pt has planned for home, the current barrier to a fluid discharge home is that patient has 16 stairs to enter her condo and she has not cleared these in practice today. Patient can stay at a hotel for a few days if needed DC order from Ortho is expected later today or tomorrow No barriers identified at this time, other than condo stairs, to patient's safe discharge home w/family to assist; close outpatient f/u recommended. 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 Yes Advance Directives on File No History Provided By Patient,Medical Record Prior Living Arrangements Apartment/Condo Comment 16 stairs to enter Household Members spouse Type of transporation used prior to Drives own vehicle admit Independent with ADL's Yes Is patient alert and oriented? Yes Barriers to Discharge Yes Comment PT/OT are concerned about patient's 16 stairs to enter her condo, however, patient considering staying in a hotel for a few days w/no stairs, until it's easier to enter her home Discharge Plan Home Transportation Arrangement Spouse Referrals Initiated None needed Comment PT/OT= Home w/assist and outpatient follow up
--- NOTE | 2022-07-13 14:27 | PT.IPTN ---
Current Diagnoses Spondylolisthesis, lumbar region (07/12/22) Spinal stenosis, lumbar region with neurogenic claudication (07/12/22) Surgery Performed Operation Date: 07/12/22 13:00 Actual Procedures p L4-5, L5-S1 TLIF w. posterior instrumentation -Robot - Monica Roberts MD Physical Therapy Treatment Note M2 PT-IP Current Condition Start: 07/13/22 10:39 Freq: NEEDED Status: Active Protocol: Document 07/13/22 11:19 SAK (Rec: 07/13/22 11:30 SAK [id number]) Physical Therapy Current Condition Current Condition Evaluation Date 07/13/22 Treatment Diagnosis s/p lumbar surgery with fusion Onset Date 07/12/22 M3 PT-IP Subjective Start: 07/13/22 10:39 Freq: NEEDED Status: Active Protocol: Document 07/13/22 15:12 TS (Rec: 07/13/22 15:56 TS [id number]) Subjective Physical Therapy Visit Type Type Treatment Note Visit Start Time 14:27 Visit Stop Time 15:05 Total Visit Minutes 38 Notes Spouse in room. Physical Therapy Visit Comments Patient Comments PT found resting in bed, reports she is worried about doing her stairs at home and may try to find a hotel room to stay in for a few nights. Therapy Pain Assessment Pain When Pain Assessed At Rest Pain Present Pain Present Pain Reported M4 PT-IP Mobility and Gait Start: 07/13/22 10:39 Freq: NEEDED Status: Active Protocol: Document 07/13/22 15:12 TS (Rec: 07/13/22 15:56 TS [id number]) PT-Bed Mobility Assessment Rolling Type of Rolling Log Rolling Level of Assist Standby Assistance Supine to Sit Supine to Sit Standby Assistance Sit to Supine Sit to Supine Standby Assistance Scooting Scooting to Edge of Bed Minimal Assistance Scooting Up and Down in Bed Standby Assistance PT-Transfer Assessment Sit to and From Stand Sit to and from Stand Standby Assistance Equipment Transfer Assistive Device Gait Belt,Front Wheeled Walker Orthotic/Prosthetic Devices or Brace: No Comments Mobility Comments Pt found resting in bed, agreeable to PT session. Log roll to right SBA, demonstrated good carryover from previous session. Supine to sit SBA with cues for BUE support for uprighting trunk, cues for LEs off bed. Pt scooted to EOB Ileana with handheld assist. Sit to stand x2 SBA with BUE support on FWW , good upright posture. Pt ambulated in hallway ~300' to stairs and back to room SBA with step thru gait and BUE support. She performed stairs CGA/Ileana x9 with left sided railing, pt fatigued and required rest break in w/c. Pt ambulated back to room SBA with no signs of buckling or LOB. Sit to supine SBA, provided cues for log roll back back into bed. She scooted to HOB with SBA and BUE handraill assist. Gait Assessment Gait Gait Assistance Required: Standby Assistance Distance (Feet) 300 Able to Maintain Weight Bearing Status Yes During Gait Assistive Devices Assistive Device Front Wheeled Walker Orthotic/Prosthetic Devices or Brace: No Gait Deviations General Gait Pattern Decreased Stride Length, Decreased Feet Clearance Factors Limiting Gait Function Factors Limiting Gait Function Pain Comments Gait Comments See mobility. Stair Climbing Assessment Evaluation Level of Assist On Stairs Contact Guard Assistance, Minimal Assistance Devices Stair Climbing Assistive Devices Left Railing Technique/Endurance Stair Climbing Direction Ascend and Descend Stair Climbing Technique Step to Step Number of Steps Climbed 9 Comments Stair Climbing Comments Pt performed stairs CGA ascending/Ileana descending x9, educated pt and spouse on guarding for stairs. PT-Balance Assessment Sitting Balance and Reactions Static Sitting Balance Ability Good Dynamic Sitting Balance Ability Good Standing Balance and Reactions Static Standing Balance Ability Good Dynamic Standing Balance Ability Good Device Used FWW M5 PT-IP Objective Assessments Start: 07/13/22 10:39 Freq: NEEDED Status: Active Protocol: Document 07/13/22 11:19 [facility] (Rec: 07/13/22 11:30 [facility] [id number]) Orientation Orientation/Cognition Level of Alertness Alert Orientation Name,Place,Situation Language Function Ability No Deficits Noted Safety Awareness Decreased Safety Awareness Memory Description No Deficits Noted Comments Patient instructed in post-op precautions and functional adherence reviewed several times Gross Range of Motion Upper Extremity ROM Assessment Within Functional Limits Lower Extremity ROM Assessment Within Functional Limits Strength Lower Extremity Strength Assessment Within Functional Limits Sensation Assessment Sensation Gross Sensation WNL Muscle Tone Muscle Tone WNL Yes M6 PT-IP Treatment Start: 07/13/22 10:39 Freq: NEEDED Status: Active Protocol: Document 07/13/22 11:19 [facility] (Rec: 04/11/23 11:30 SAK [id number]) Physical Therapy Treatment Exercises Exercises Ankle Pumps,Gluteal Sets,Quad Sets Education Education Provided Precautions Other Treatments Other Treatment Performed core hariak all submax M7 PT-IP Assessment and Plan Start: 07/13/22 10:39 Freq: NEEDED Status: Active Protocol: Document 07/13/22 15:12 TS (Rec: 07/13/22 15:56 TS [id number]) PT Summary Assessment and Plan Potential Rehabilitation Potential Good Status of Condition at Evaluation Evolving Summary Impairments Pain,Bed Mobility,Transfers, Gait,Activity Tolerance Assessment Summary Pt progressed all bed mobility to SBA this session and sit to stand to SBA. Pt recalled 3 /3 precautions and demonstrated good carryover of log roll sequencing. She progressed her ambulation to ~ 300' SBA with FWW, no signs of buckling or LOB. Pt performed stairs x9 CGA for ascending/ Ileana descending stairs for eccentric control, pt became fatigued and required rest break in chair. PT is recommending 24/7 assist available from spouse who is very supportive and willing. Pt believes she can return home tomorrow and will not be pursuing hot room for d/c. PT will work with her in the morning to progress stairs before d/c. Goals Bed Mobility Goal Standby Assistance Transfer Goal Standby Assistance Gait Goal Standby Assistance Gait Distance 200 Other Goals able to verbalize precautions and demonstrate good ability to functionally adhere to precautions Days to Meet Goals 4 Frequency of Treatment Frequency Of Treatment Twice a Day Treatment Plan Physical Therapy Treatment Plan Bed Mobility Training,Transfer Training,Gait Training, Therapeutic Exercise,Discharge Planning,Hot or Cold Pack Precautions Lumbar Precautions Log Roll,No Twisting,Limit Bending,Lifting Restriction of 10 lbs,Gait Belt above Incisional Area Recommendations To Nursing Amount of Assist Needed 1 Person Assist Discharge Recommendations PT Discharge Recommendations Home with 24/7 Assist Available,Outpatient PT Transportation Needs at Discharge Private Vehicle
[2022-07-13] MEDS: SENNOSIDES 8.6 MG TABLET 17.2 MG PO (20:25)
[2022-07-14 04:00] VITALS: BP 123/65; PULSE 84; RESP 17; TEMP 36.8; O2SAT 94
[2022-07-14] MEDS: OXYCODONE IR 10 MG TABLET PO ×2 (05:42→10:06)
[2022-07-14 07:33] VITALS: BP 115/54; PULSE 74; RESP 18; O2SAT 91
[2022-07-14] MEDS: ATORVASTATIN 20 MG TABLET 40 MG PO (08:31)
[2022-07-14 08:32] VITALS: O2SAT 91
[2022-07-14] MEDS: DOCUSATE 100 MG CAPSULE PO (08:32)
[2022-07-14] MEDS: LORATADINE 10 MG TABLET PO (08:32)
[2022-07-14] MEDS: ACETAMINOPHEN 325 MG TABLET 650 MG PO (08:33)
--- NOTE | 2022-07-14 10:12 | PT-IP ANOTE ---
pt is discharging this am with . She reports feeling comfortable with stairs and does not wish to do PT prior to DC
--- NOTE | 2022-07-14 10:12 | PC.NURSE ---
dressing changed today. no signs of infection. katie intact.
--- NOTE | 2022-07-14 13:58 | CM.DPNOTE ---
DC Note Discharge home today w/spouse, cleared by therapies. No needs from this CM team JW
== END 2022-07-14 10:20 | disposition home or self-care (01) | DRG 455 ==
PROVIDERS: Admitting Provider Orthopaedic Surgery Orthopaedic Surgery of the Spine; Family Provider Internal Medicine; PCP Internal Medicine; Referring Provider Orthopaedic Surgery Orthopaedic Surgery of the Spine; Visit Provider Orthopaedic Surgery Orthopaedic Surgery of the Spine
PROC: 0SG00AJ Fusion of Lumbar Vertebral Joint with Interbody Fusion Device, Posterior Approach, Anterior Column, Open Approach (ICD-10-PCS; principal; 2022-07-12 13:00)
DX: M43.16 Spondylolisthesis, lumbar region (principal); M48.062 Spinal stenosis, lumbar region with neurogenic claudication; M43.17 Spondylolisthesis, lumbosacral region; M48.07 Spinal stenosis, lumbosacral region; E78.5 Hyperlipidemia, unspecified; I10 Essential (primary) hypertension; J45.909 Unspecified asthma, uncomplicated; Z20.822 Contact with and (suspected) exposure to COVID-19; Z87.891 Personal history of nicotine dependence
CPT/HCPCS: 36415; 72100; 76000; 85014; 85018; 87635; 94760; 94762; 97116; 97162; 97165; 97530; 97535; C9803; C1713; C9290; J0171; J1100; J1170; J2250; J2405; J2704; J3010; J7613

== ENCOUNTER 2023-02-07 13:18 | Emergency (ER) | payer OTHER, SELFPAY ==
[2022-07-12 11:23] VITALS: BMI 31.2
[2023-02-07] VITALS (21 sets, daily range): BP systolic 146–179; BP diastolic 60–85; PULSE 58–75; RESP 11–24; TEMP 36.4; O2SAT 92–98; BMI 28.7
--- NOTE | 2023-02-07 14:23 | DI.RAD.S_ITS ---
PROCEDURE: XR CHEST 1V INDICATIONS: chest pain TECHNIQUE: One view of the chest was acquired. COMPARISON: None. FINDINGS: Surgical changes and devices: None. Lungs and pleura: Lungs are clear. No pleural effusions or pneumothorax. Mediastinum: Mediastinal contours appear normal. Heart size is normal. Bones and chest wall: No suspicious bony lesions. Overlying soft tissues appear unremarkable. IMPRESSION: No acute cardiopulmonary findings Approved by: Arnold Ernandez M.D. on 02/07/2023 at 15:02
--- NOTE | 2023-02-07 14:28 | PC.NURSE ---
ED chest pain order set accidentally ordered instead of ED Nurse Chest Pain order set. Provider made aware, provider okayed orderset.
[2023-02-07 14:36] LABS: Alanine Aminotransferase 13 IU/L (<35); Albumin 3.9 g/dL (3.5-5.0); Albumin Globulin Ratio 1.1 (1.0-2.8); Alkaline Phosphatase 150 U/L (38-126); Aspartate Aminotransferase 23 IU/L (14-36); BUN Creatinine Ratio 19.2 (6-22); Bilirubin Total 0.6 mg/dL (0.2-1.3); Blood Urea Nitrogen 20 mg/dL (7-17); Calcium 10.1 mg/dL (8.4-10.2); Carbon Dioxide 28 mmol/L (22-32); Chloride 103 mmol/L (98-107); Creatine Kinase 61 U/L (30-135); Estimated Glomerular Filt Rate 55 mL/min (>60); Globulin 3.4 g/dL (1.7-4.1); Glucose 91 mg/dL (80-110); HEMOLYSIS < 15 (0-50); Lipase 61 U/L (23-300); Potassium 3.7 mmol/L (3.4-5.1); Sodium 137 mmol/L (137-145); Total Protein 7.3 g/dL (6.3-8.2)
[2023-02-07 14:39] LABS: Add Manual Diff / Slide Review NO; Basophils Absolute Auto 100 /uL (0-100); Eosinophils Absolute Auto 200 /uL (0-450); Eosinophils Percent Auto 2.5 % (2-4); Hematocrit 33.7 % (36-46); Hemoglobin 11.4 g/dL (12.0-16.0); Lymphocytes Absolute Auto 2200 /uL (1100-4500); Lymphocytes Percent Auto 29.5 % (25-40); Mean Corpuscular HGB Conc 33.9 % (30-36); Mean Corpuscular Hemoglobin 30.3 PG (26-34); Mean Corpuscular Volume 89.3 fL (80-100); Monocytes Absolute Auto 500 /uL (0-900); Monocytes Percent Auto 6.2 % (3-14); Neutrophils Absolute Auto 4600 /uL (1500-7000); Neutrophils Percent Auto 60.8 % (50-75); Platelet Count 352 X10^3/uL (150-400); Red Blood Cell Count 3.77 X10^6/uL (4.0-5.2); Red Cell Distribution Width 13.9 % (11.6-14.8); White Blood Cell Count 7.6 X10^3/uL (4.5-11.0)
[2023-02-07 14:47] LABS: Troponin I < 0.012 ng/mL (0.01-0.034)
--- NOTE | 2023-02-07 15:01 | PC.NURSE ---
Pt states she has had chest pain the past few days, but today chest pain increased along with shortness of breath. Pt says she has asthma and is used to feeling SOB, but today she felt worse and went to the walk in clinic. [facility] called 911 and patient was transported to the ER. Patient denies chest pain currently, after receiving aspirin and nitro from EMS
[2023-02-07] MEDS: FAMOTIDINE 20 MG/2 ML VIAL 40 MG IV (16:50)
[2023-02-07 16:52] LABS: Creatine Kinase 53 U/L (30-135)
[2023-02-07] MEDS: MAG HYDROX/ALUMINUM/SIMETH SUS 20 ML, LIDOCAINE VISCOUS 2% 15 ML PO (16:52)
[2023-02-07 17:04] LABS: Troponin I < 0.012 ng/mL (0.01-0.034)
--- NOTE | 2023-02-15 11:13 | ED.CHESTPAIN ---
HPI - Chest Pain <Sindy Martinez PA-C - Last Filed: 02/15/23 11:23> General Chief Complaint: Chest Pain Stated Complaint: Chest pain Time Seen by Provider: 02/07/23 15:53 Source: patient and EMS Mode of arrival: EMS Limitations: no limitations History of Present Illness HPI narrative: 77-year-old female with past medical history asthma, arthritis, GERD, hyperlipidemia, CKD 3 presents to the ED with intermittent chest pain for the last 3 days. Patient states that she had a 9/10 chest pain earlier this morning that radiated down to her left arm. Patient went to the walk-in clinic, was given 325 of aspirin and 1 nitro which resolved her pain completely. Patient was brought from the walk-in clinic to the ED by EMS. In the ED patient denies chest pain or any other symptoms. She denies fever, chills, chest pain, shortness of breath, nausea, vomiting, abdominal pain, lightheadedness, dizziness, syncope. Related Data Home Medications Medication Instructions Recorded Confirmed atorvastatin 40 mg tablet 40 mg PO DAILY 03/04/22 07/12/22 albuterol sulfate 2.5 mg/3 mL 2.5 mg inhalation Q4-6H PRN Asthma 04/16/22 07/12/22 (0.083 %) solution for nebulization cetirizine 10 mg tablet 10 mg PO DAILY 04/16/22 07/12/22 amlodipine 5 mg tablet 5 mg PO DAILY 07/01/22 07/12/22 Previous Rx's Medication Instructions Recorded acetaminophen 325 mg tablet 650 mg (2 x 325 mg) PO Q6H PRN 07/13/22 Fever/Mild Pain (1-3) #60 tabs docusate sodium 100 mg capsule 100 mg PO BID #20 caps 07/13/22 oxycodone 10 mg tablet 5 mg (1/2 x 10 mg) PO Q3H PRN 07/13/22 Pain, Severe (7-10) #60 tabs Allergies Allergy/AdvReac Type Severity Reaction Status Date / Time azithromycin Allergy Severe Hives Verified 02/07/23 13:37 oxycodone Allergy Severe Hives Verified 02/07/23 13:37 Penicillins Allergy Severe Anaphylaxis Verified 02/07/23 13:37 nickel Allergy Intermediate Itch, Verified 02/07/23 13:37 rash, blister Sulfa (Sulfonamide Allergy Intermediate ITCHING Verified 02/07/23 13:37 Antibiotics) Review of Systems <Sindy Martinez PA-C - Last Filed: 02/15/23 11:23> Constitutional Constitutional: Denies chills, Denies fatigue, Denies fever(s), Denies frequent falls, Denies lethargy and Denies weakness Eyes Eyes: Denies change in vision, Denies eye discharge, Denies irritation and Denies loss of vision ENT Ears, Nose, Mouth, and Throat: Denies change in voice, Denies dizziness, Denies neck pain, Denies sore throat and Denies throat swelling Cardiovascular Cardiovascular: Reports chest pain, Denies irregular heart rhythm, Denies lightheadedness, Denies palpitations, Denies dyspnea, Denies dyspnea on exertion and Denies orthopnea Respiratory Respiratory: Denies cough, Denies dyspnea, Denies dyspnea on exertion and Denies wheezing Gastrointestinal Gastrointestinal: Denies abdominal pain, Denies change in bowel habits, Denies diarrhea, Denies nausea and Denies vomiting Musculoskeletal Musculoskeletal: Denies neck pain and Denies numbness Integumentary/Breasts Skin/Breast: Denies pruritus, Denies erythema, Denies rash and Denies wounds Neurologic Neurologic: Denies behavioral changes, Denies confusion, Denies dizziness, Denies frequent falls, Denies loss of vision, Denies numbness and Denies weakness Psychiatric Psychiatric: Denies anxiety, Denies behavioral changes, Denies confusion, Denies depression, Denies homicidal ideation and Denies suicidal ideation Endocrine Endocrine: Denies fatigue, Denies flushing and Denies palpitations Hematologic/Lymphatic Hematologic/Lymphatic: Denies easy bruising Allergic/Immunologic Allergic/Immunologic: Denies urticaria, Denies throat swelling and Denies wheezing Patient History <Sindy Martinez PA-C - Last Filed: 02/15/23 11:23> Medical History CKD (chronic kidney disease), stage III HLD (hyperlipidemia) GERD (gastroesophageal reflux disease) COVID-19 virus infection (03/05/22) Asthma Arthritis HTN (hypertension) Spinal stenosis Surgical History History of bunionectomy of left great toe History of ankle surgery Hx of tonsillectomy History of bilateral tubal ligation Hx of bladder repair surgery Hx of bilateral cataract extraction Hx of fusion of cervical spine (2014) Hx of sinus surgery Hx of cholecystectomy Social History household members: spouse Smoking Status: Former smoker alcohol intake: current Smoking Status: Former smoker alcohol intake frequency: 0-2 drinks per day Alcohol type: wine Substance Use Type: does not use Exam <Sindy Martinez PA-C - Last Filed: 02/15/23 11:23> Narrative Exam Narrative: Const General:?cooperative, healthy appearing and comfortable [facility] Head:?normal to inspection Ears:?hearing grossly normal bilaterally Nose:?external nose normal Face and sinus:?normal facial exam and sinuses nontender Mouth:?oral mucosae normal Throat:?posterior oropharynx normal Eyes General:?appearance normal, both eyes and all related structures Neck Neck:?normal visual inspection and no lymphadenopathy noted Resp Effort & Inspection:?normal respiratory effort Auscultation:?clear to auscultation bilaterally Cardio Rate:?regular rate Rhythm:?regular rhythm Neuro General:?patient alert, patient awake and patient oriented x3 Initial Vital Signs Initial Vital Signs: Vital Signs Temperature 97.5 F L 02/07/23 13:20 Pulse Rate 63 02/07/23 13:20 Respiratory Rate 18 02/07/23 13:20 Blood Pressure 160/74 H 02/07/23 13:20 Pulse Oximetry 98 02/07/23 13:20 Oxygen Delivery Method Room Air 02/07/23 13:20 <Christa Saldivar DO - Last Filed: 02/15/23 22:50> Initial Vital Signs Initial Vital Signs: Vital Signs Temperature 97.5 F L 02/07/23 13:20 Pulse Rate 63 02/07/23 13:20 Respiratory Rate 18 02/07/23 13:20 Blood Pressure 160/74 H 02/07/23 13:20 Pulse Oximetry 98 02/07/23 13:20 Oxygen Delivery Method Room Air 02/07/23 13:20 Course <Sindy Martinez PA-C - Last Filed: 02/15/23 11:23> Orders Ordered: Discontinued Medications Aspirin (Aspirin 81 Mg Chew Tab) 324 mg PO NOW ONE Stop: 02/07/23 14:23 Last Admin: 02/07/23 14:26 Dose: Not Given Documented By: SPF Al Hydrox/Mg Hydrox/Simethicone 20 ml/ Lidocaine HCl 15 ml 0 ml PO NOW ONE Stop: 02/07/23 16:20 Last Admin: 02/07/23 16:52 Dose: 35 ml Documented By: SPF Famotidine (Famotidine 20 Mg/2 Ml Vial) 40 mg IV NOW [facility] Famotidine (Famotidine 20 Mg/2 Ml Vial) 40 mg IV NOW [facility] Last Admin: 02/07/23 16:50 Dose: 40 mg Documented By: SPF Sodium Chloride (Normal Saline 0.9%) 1,000 mls @ 150 mls/hr IV CONT [facility] Last Admin: 02/07/23 14:27 Dose: Not Given Documented By: SPF <Christa Saldivar DO - Last Filed: 02/15/23 22:50> Orders Ordered: Discontinued Medications Aspirin (Aspirin 81 Mg Chew Tab) 324 mg PO NOW ONE Stop: 02/07/23 14:23 Last Admin: 02/07/23 14:26 Dose: Not Given Documented By: SPF Al Hydrox/Mg Hydrox/Simethicone 20 ml/ Lidocaine HCl 15 ml 0 ml PO NOW ONE Stop: 02/07/23 16:20 Last Admin: 02/07/23 16:52 Dose: 35 ml Documented By: SPF Famotidine (Famotidine 20 Mg/2 Ml Vial) 40 mg IV NOW [facility] Famotidine (Famotidine 20 Mg/2 Ml Vial) 40 mg IV NOW [facility] Last Admin: 02/07/23 16:50 Dose: 40 mg Documented By: SPF Sodium Chloride (Normal Saline 0.9%) 1,000 mls @ 150 mls/hr IV CONT [facility] Last Admin: 02/07/23 14:27 Dose: Not Given Documented By: SPF MDM - Chest Pain <Sindy Martinez PA-C - Last Filed: 02/15/23 11:23> Lab Data 02/07/23 13:25 02/07/23 13:25 Labs: Lab Results 02/07/23 02/07/23 Range/Units 13:25 16:32 WBC 7.6 (4.5-11.0) X10^3/uL RBC 3.77 L (4.0-5.2) X10^6/uL Hgb 11.4 L (12.0-16.0) g/dL Hct 33.7 L (36-46) % MCV 89.3 (80-100) fL MCH 30.3 (26-34) PG MCHC 33.9 (30-36) % RDW 13.9 (11.6-14.8) % Plt Count 352 (150-400) X10^3/uL Neut % (Auto) 60.8 (50-75) % Lymph % (Auto) 29.5 (25-40) % [place] % (Auto) 6.2 (3-14) % Eos % (Auto) 2.5 (2-4) % Baso % (Auto) 1.0 (0-2) % Neut # (Auto) 4600 (9327-2695) /uL Lymph # (Auto) 2200 (2779-3748) /uL Independence # (Auto) 500 (0-900) /uL Eos # (Auto) 200 (0-450) /uL Baso # (Auto) 100 (0-100) /uL Sodium 137 (137-145) mmol/L Potassium 3.7 (3.4-5.1) mmol/L Chloride 103 (98-107) mmol/L Carbon Dioxide 28 (22-32) mmol/L BUN 20 H (7-17) mg/dL Creatinine 1.04 (0.52-1.04) mg/dL Estimated GFR 55 L (>60) mL/min BUN/Creatinine Ratio 19.2 (6-22) Glucose 91 (80-110) mg/dL Calcium 10.1 (8.4-10.2) mg/dL Total Bilirubin 0.6 (0.2-1.3) mg/dL AST 23 (14-36) IU/L ALT 13 (<35) IU/L Alkaline Phosphatase 150 H (38-126) U/L Total Creatine Kinase 61 53 (30-135) U/L Troponin I < 0.012 < 0.012 (0.01-0.034) ng/mL Total Protein 7.3 (6.3-8.2) g/dL Albumin 3.9 (3.5-5.0) g/dL Globulin 3.4 (1.7-4.1) g/dL Albumin/Globulin Ratio 1.1 (1.0-2.8) Lipase 61 (23-300) U/L MDM Narrative Medical decision making narrative: 77-year-old female with past medical history asthma, arthritis, GERD, hyperlipidemia, CKD 3 presents to the ED with intermittent chest pain for the last 3 days. Concern for ACS versus arrhythmias versus GERD versus pneumonia versus musculoskeletal sprain/strain versus other. Will obtain labs, troponin, lipase, EKG, chest x-ray. Chest x-ray with no acute cardiopulmonary findings. Labs, troponin, lipase, EKG without acute findings. Troponin was repeated and was normal as well. Patient continued to be symptom-free in the ED. discussed findings with patient. Recommend follow-up with cardiology and PCP as soon as possible. ED return precautions discussed with patient. Patient verbalized understanding. Medical records reviewed: Yes <Christa Saldivar DO - Last Filed: 02/15/23 22:50> Lab Data Labs: Lab Results 02/07/23 02/07/23 Range/Units 13:25 16:32 WBC 7.6 (4.5-11.0) X10^3/uL RBC 3.77 L (4.0-5.2) X10^6/uL Hgb 11.4 L (12.0-16.0) g/dL Hct 33.7 L (36-46) % MCV 89.3 (80-100) fL MCH 30.3 (26-34) PG MCHC 33.9 (30-36) % RDW 13.9 (11.6-14.8) % Plt Count 352 (150-400) X10^3/uL Neut % (Auto) 60.8 (50-75) % Lymph % (Auto) 29.5 (25-40) % Independence % (Auto) 6.2 (3-14) % Eos % (Auto) 2.5 (2-4) % Baso % (Auto) 1.0 (0-2) % Neut # (Auto) 4600 (1606-5379) /uL Lymph # (Auto) 2200 (8327-9058) /uL Independence # (Auto) 500 (0-900) /uL Eos # (Auto) 200 (0-450) /uL Baso # (Auto) 100 (0-100) /uL Sodium 137 (137-145) mmol/L Potassium 3.7 (3.4-5.1) mmol/L Chloride 103 (98-107) mmol/L Carbon Dioxide 28 (22-32) mmol/L BUN 20 H (7-17) mg/dL Creatinine 1.04 (0.52-1.04) mg/dL Estimated GFR 55 L (>60) mL/min BUN/Creatinine Ratio 19.2 (6-22) Glucose 91 (80-110) mg/dL Calcium 10.1 (8.4-10.2) mg/dL Total Bilirubin 0.6 (0.2-1.3) mg/dL AST 23 (14-36) IU/L ALT 13 (<35) IU/L Alkaline Phosphatase 150 H (38-126) U/L Total Creatine Kinase 61 53 (30-135) U/L Troponin I < 0.012 < 0.012 (0.01-0.034) ng/mL Total Protein 7.3 (6.3-8.2) g/dL Albumin 3.9 (3.5-5.0) g/dL Globulin 3.4 (1.7-4.1) g/dL Albumin/Globulin Ratio 1.1 (1.0-2.8) Lipase 61 (23-300) U/L ECG Data Attestation: I personally reviewed and interpreted this ECG as follows: Interpretation: Mank: Sinus rhythm rate of 60 6p are 156 QRS of 92 QTC of 427. No acute ST changes likely motion artifact in lead 1 [address] 3[address] No acute [address] changes compared to 01/25/2022. EKG 2. Sinus bradycardia rate of 50 6p are 152 QRS of [address] QTC 442. No acute ST elevation depression noted. Nonspecific change compared in leads 1 2 and 3. Discharge Plan Departure Patient Disposition: Home Clinical Impression: Chest pain Instructions: DI for Chest Pain Activity Restrictions/Additional Instructions: You were evaluated in the ED today for chest pain. Your chest x-ray, EKG, labs were normal. It is possible that your symptoms could be caused by acid reflux. You may continue to take Pepcid AC twice daily for the next few days. Please follow-up with your PCP and a inward toll operator as soon as possible. Return to the ED if you have worsening symptoms, shortness of breath. Prescriptions: No Action atorvastatin 40 mg Tablet 40 mg PO DAILY cetirizine 10 mg Tablet 10 mg PO DAILY albuterol sulfate 2.5 mg /3 mL (0.083 %) Solution For Nebulization 2.5 mg INHALATION Q4-6H PRN (Reason: Asthma) amlodipine 5 mg Tablet 5 mg PO DAILY acetaminophen 325 mg Tablet 650 mg PO Q6H PRN (Reason: Fever/Mild Pain (1-3)) Qty: 60 0RF docusate sodium 100 mg Capsule 100 mg PO BID Qty: 20 0RF oxycodone 10 mg Tablet 5 mg PO Q3H PRN (Reason: Pain, Severe (7-10)) Qty: 60 0RF Referrals: Jonathan Madrigal MD [Primary Care Provider] - Stand Alone Forms: Patient Portal/API ED Sign-out <Christa Saldivar DO - Last Filed: 02/15/23 22:50> Cosign ED Attending [place] Attestation: I was immediately available in the department for consultation.
== END 2023-02-07 17:49 | disposition home or self-care (01) ==
PROVIDERS: Emergency Medicine; Emergency Provider Student in an Organized Health Care Education/Training Program; Family Provider Internal Medicine; PCP Internal Medicine
DX: R07.9 Chest pain, unspecified (principal); R00.1 Bradycardia, unspecified
CPT/HCPCS: 71045; 80053; 82550; 83690; 84484; 85025; 93005; 96374; 99284

== ENCOUNTER → 2024-03-12 11:35 | Outpatient (CLI) | payer MEDICARE, SELFPAY ==
[2022-07-12 11:23] VITALS: BMI 31.2
--- NOTE | 2024-03-12 | DI.RAD.S_ITS ---
PROCEDURE: XR SHOULDER LT MIN 2V INDICATIONS: Primary osteoarthritis, left shoulder TECHNIQUE: 3 views of the shoulder were acquired. COMPARISON: None. FINDINGS: Bones: No fractures or dislocations. [id number] acromioclavicular joint osteoarthritis and moderate glenohumeral joint osteoarthritis is seen. No suspicious bony lesions. Visualized ribs appear intact. Postfusion changes in visualized lower cervical spine are seen. Soft tissues: No suspicious soft tissue calcifications. IMPRESSION: 1. Cgps-[id number]-dorvcllp acromioclavicular joint and glenohumeral joint osteoarthritis. No shoulder fracture or dislocation. No gross soft tissue abnormalities. Dictated by: Samuel Renteria M.D. on 03/12/2024 at 13:44 Approved by: Samuel Renteria M.D. on 03/12/2024 at 13:45
== END ==
PROVIDERS: Family Provider Internal Medicine; PCP Student in an Organized Health Care Education/Training Program; Referring Provider Student in an Organized Health Care Education/Training Program; Visit Provider Student in an Organized Health Care Education/Training Program
DX: M19.012 Primary osteoarthritis, left shoulder (principal)
CPT/HCPCS: 73030

== ENCOUNTER 2024-09-24 07:07 | Day surgery (SDC) | payer MEDICARE, SELFPAY ==
[2022-07-12 11:23] VITALS: BMI 31.2
--- NOTE | 2024-09-24 | PATH_ITS ---
[facility] Accession Number: [id number] No. of containers..02 Tissue . 01 Material submitted: . PART A: colon - COLON, TRANSVERSE POLYP PART B: colon - COLON, RANDOM . 01 Diagnosis: A. TRANSVERSE COLON POLYP, BIOPSY: Tubular adenoma. . B. COLON, RANDOM, BIOPSIES: Colonic mucosa with no diagnostic alteration. No colitis, including microscopic colitis, is identified. MRV 10/01/2024 1301 Local . 01 Electronically signed: . Allan Ortega MD, Dermatopathologist NPI- [id number] . 01 Gross description: . Part A: COLON, TRANSVERSE POLYP : Received in formalin is 1 fragment(s) of lr, soft tissue measuring 0.6 x 0.4 x 0.4 cm submitted entirely in 1 cassette(s) Part B: COLON, RANDOM: Received in formalin are multiple fragment(s) of lr, soft tissue measuring 0.1 x 0.1 x 0.1 cm to 0.3 x 0.2 x 0.2 cm submitted entirely in 1 cassette(s) /ANTONIO 09/26/2024 1835 Local . 01 Pathologist provided ICD-10: D12.3, K90.3 . 01 CPT . 447010, 301107 Specimen Comment: A courtesy copy of this report has been sent to [phone] Performed at: [address] [id number] MD Yovani Naranjo MD Phone: [phone]
[2024-09-24 07:43] VITALS: BP 133/71; PULSE 79; RESP 16; TEMP 36.2; O2SAT 97
[2024-09-24] MEDS: LACTATED RINGERS 1,000 ML 42 ML IV (07:57)
--- NOTE | 2024-09-24 08:35 | PM.PREOP ---
Pre-operative Note COVID-19 Result date/Date tested (Pos, Neg/Pending): 09/24/24 Interval Note History & Physical reviewed/Exam performed by Physician: Yes Changes to H&P: No ASA Class (for procedural sedation): II
--- NOTE | 2024-09-24 08:36 | P.OP.COLON_ITS ---
Operative Date/Time/Diagnoses Date of procedure: 09/24/24 Time of procedure: 09:04 Pre-op diagnosis: See indication findings Post-op diagnosis: same Procedure & Clinicians Study performed: Colonoscopy Same procedure(s) as scheduled: Yes Indications: Loose stools with difficulty with complete incontinence Surgeon: Derrek Coronel Procedure Notes Procedure in detail: After informed consent was obtained the patient was placed in left lateral de cubitus position. The video colonoscope was introduced the rectum slowly advanced cecum. Preparation was good. On slow withdrawal mucosa was carefully examined. The scope was removed. The patient tolerated procedure well. Blood loss none Complications none Sedation mac Findings 1. Extensive pancolonic diverticulosis 2. Mild internal hemorrhoids 3. 8 mm sessile polyp at 70 cm/transverse colon. Removed with cold snare completely. 4. Prolapsing IC valve somewhat lumpy otherwise normal. 5. Random colon biopsies taken Will be in touch following the return of biopsies.
[2024-09-24 09:07] VITALS: BP 102/58; PULSE 59; RESP 16; TEMP 36.2; O2SAT 96
[2024-09-24 09:14] VITALS: BP 112/74; PULSE 60; RESP 16; O2SAT 98
[2024-09-24 09:19] VITALS: BP 112/55; PULSE 65; RESP 16; O2SAT 98
[2024-09-24 09:25] VITALS: BP 120/70; PULSE 60; RESP 16; TEMP 36.2; O2SAT 98
--- NOTE | 2024-09-26 10:19 | PM.HP.IH.1 ---
History of Present Illness History of Present Illness Date Patient Seen: 09/24/24 Chief complaint: SDC Narrative: Diarrhea/steatorrhea PFSH Medical History CKD (chronic kidney disease), stage III HLD (hyperlipidemia) GERD (gastroesophageal reflux disease) COVID-19 virus infection (03/05/22) Asthma Arthritis HTN (hypertension) Spinal stenosis Surgical History History of bunionectomy of left great toe History of ankle surgery Hx of tonsillectomy History of bilateral tubal ligation Hx of bladder repair surgery Hx of bilateral cataract extraction Hx of fusion of cervical spine (2013) Hx of sinus surgery Hx of cholecystectomy Family History Father No problems noted. Father Heart disease Sister Breast cancer Cancer Mother Breast cancer Social History (Updated 09/06/24 @ 10:43 by Varsha Velasquez MA) marital status: household members: spouse lives independently: Yes occupational status: previously employed Smoking Status: Former smoker alcohol intake: current substance use type: does not use Meds Home Medications and Allergies Home Medications ?Medication ?Instructions ?Recorded ?Confirmed ?Type atorvastatin 40 mg tablet 40 mg PO DAILY 03/04/22 09/24/24 History cetirizine 10 mg tablet 10 mg PO DAILY 04/16/22 09/24/24 History amlodipine 5 mg tablet 5 mg PO DAILY 07/01/22 09/24/24 History lactobacillus combination no.9 PO 09/06/24 09/06/24 History [Adult 50 Plus Probiotic] cyclobenzaprine 5 mg tablet 5 mg PO ONCE PM PRN jaw muscle pain 09/24/24 09/24/24 History Allergies Allergy/AdvReac Type Severity Reaction Status Date / Time azithromycin Allergy Severe Hives Verified 09/24/24 07:28 oxycodone Allergy Severe Hives Verified 09/24/24 07:28 Penicillins Allergy Severe Anaphylaxis Verified 09/24/24 07:28 nickel Allergy Intermediate Itch, Verified 09/24/24 07:28 rash, blister Sulfa (Sulfonamide Allergy Intermediate ITCHING Verified 09/24/24 07:28 Antibiotics) Exam Vital Signs (past 8 hours): Oxygen Delivery Method Room Air Narrative Exam Narrative: Oropharynx free of lesions Chest clear to auscultation percussion Cardiac exam reveals no S3 or murmur Assessment & Plan Assessment & Plan narrative: Loose stools rule out underlying colitis. Risks, benefits, alternatives have been explained. Time-Based Coding :: [TOTAL MINUTES] spent with patient and on the chart (including review of chart, obtaining history, exam, reviewing outside data, placing orders, documenting exam and treatment plan, and counseling patient) on [DATE]. PROFEE Evp Managing Director Document charge(s): No
== END 2024-09-24 09:35 | disposition home or self-care (01) ==
PROVIDERS: Family Provider Internal Medicine; PCP Student in an Organized Health Care Education/Training Program; Referring Provider Student in an Organized Health Care Education/Training Program; Visit Provider Internal Medicine Gastroenterology
PROC: 0DJD8ZZ Inspection of Lower Intestinal Tract, Via Natural or Artificial Opening Endoscopic (ICD-10-PCS; CPT 45378; principal; 2024-09-24 08:30)
DX: R15.9 Full incontinence of feces (principal); R19.7 Diarrhea, unspecified; Z87.891 Personal history of nicotine dependence; K57.30 Diverticulosis of large intestine without perforation or abscess without bleeding; K64.8 Other hemorrhoids; K63.89 Other specified diseases of intestine; D12.3 Benign neoplasm of transverse colon
CPT/HCPCS: 45385; 45380; J2704